=== PATIENT | female | born 1965 | race Caucasian/White ===

== ENCOUNTER 2023-05-21 16:32 | Emergency (ER) | payer OTHER, SELFPAY ==
--- NOTE | ~2023-05-21 | CT_ITS ---
EXAMINATION: CT abdomen pelvis w con DATE: 05/21/2023 17:54 INDICATION: abdomen pain/ulcerative colitis TECHNIQUE: Computed tomography (CT) of the abdomen and pelvis was performed with 100 mL Omnipaque-350 intravenous contrast. Automated exposure control and iterative reconstruction technique were employe d. The dose-length product was 347.39 mGy-cm. COMPARISON: None. FINDINGS: Lower thorax: Unremarkable Liver: Heterogeneous parenchymal enhancement. Spleen not present for comparison. Biliary/Gallbladder: Gallbladder is normal. No bile duct dilation. Pancreas: No mass or duct dilation. Spleen: Absent Adrenals:Normal right adrenal gland. Absent left adrenal gland. Kidneys: Absent left kidney. No suspicious mass, obstructing stone, or hydronephrosis in the right ki dney. Subcentimeter hypodensity, too small to characterize but most likely represents a cyst. GI tract: Mild distal esophageal and moderate gastric wall edema. No small bowel dilation. Diffuse mi ldly dilated large bowel, with large volume of colonic feces. Sigmoid and rectal wall edema. Normal a ppendix. Mesentery/Peritoneum: No ascites, mass, or free air. Retroperitoneum: No mass. Atherosclerotic abdominal aortic and/or arterial calcifications. Pelvis: Asymmetric bladder wall thickening in a partially filled urinary bladder. Uterus not identifi ed. Soft Tissues: Soft tissues and body wall unremarkable. Bones: No acute osseous finding. IMPRESSION: Heterogeneous liver parenchyma as can be seen with cirrhosis. Mild esophagitis and moderate gastritis. Sigmoid and rectal colitis. Large volume of colonic stool may reflect significant constipation in the appropriate clinical contex t. Asymmetric urinary bladder wall thickening, consider referral for cystoscopy. Reviewed, dictated and finalized at [facility] IMPRESSION: Heterogeneous liver parenchyma as can be seen with cirrhosis. Mild esophagitis and moderate gastritis. Sigmoid and rectal colitis. Large volume of colonic stool may reflect significant constipation in the appro priate clinical context. Asymmetric urinary bladder wall thickening, consider referral for cystoscopy.
[2023-05-21 16:45] VITALS: BP 162/88; PULSE 94; RESP 24; TEMP 36.3; O2SAT 97
--- NOTE | 2023-05-21 16:45 | ED.ABDPAIN ---
HPI - Abdominal Pain General Chief Complaint: Abdominal Pain Stated Complaint: abd pain Time Seen by Provider: 05/21/23 16:42 Source: patient Mode of arrival: ambulatory Limitations: no limitations History of Present Illness HPI narrative: Geno is a 57-year-old female patient presenting to the ER today with diffuse lower abdominal pain x3 days. She reports that she does have a history of ulcerative colitis. Has been having mucous stools with little blood. No nausea or vomiting. Rates her pain currently a 10/10-sharp and cramping. Feels as though she needs to have bm constantly. Denies any urine symptoms. GI specialist is at [facility]-Dr. Fry. States she does not take any medications for her ulcerative colitis currently. States the medication she was taking, her insurance will no longer cover. Related Data Allergies Allergy/AdvReac Type Severity Reaction Status Date / Time codeine Allergy Anaphylactic Verified 05/21/23 16:57 Shock Review of Systems Review of Systems: Pertinent positives per HPI. Patient denies any fever, chills, rash, headache, visual changes, dizziness, cough, runny nose, sore throat, shortness of breath, chest pain, palpitations, nausea, vomiting, diarrhea, constipation, or any urinary issues. PMFSH Comments At the time of my signature, I reviewed and agree with the nursing past medical, surgical, social, and family history. There is no relevant family history pertinent to the patient complaint. Exam Narrative: General: Well-developed, well nourished, in distress due to pain Head: Normocephalic, atraumatic. Cardio: Regular rate and rhythm, s1 and s2 normal, no murmur appreciated. Resp: Clear to auscultation bilaterally, no rhonchi, rales, wheezing or rubs. Abdomen: Soft, pliable, bowel sounds present in all quadrants, diffuse lower abdominal tenderness to palpation, no organomegly, no CVAT tenderness. Course Course Emergency Course: Portions of this record may have been created with voice recognition software. Vital Signs Vital signs: Vital Signs Temperature 36.3 C L 05/21/23 16:45 Pulse Rate 94 05/21/23 16:45 Respiratory Rate 24 H 05/21/23 16:45 Blood Pressure 162/88 H 05/21/23 16:45 Pulse Oximetry 97 05/21/23 16:45 Oxygen Delivery Room Air 05/21/23 16:45 Temperature 36.3 C L 05/21/23 16:45 Pulse Rate 94 05/21/23 16:45 Respiratory Rate 24 H 05/21/23 16:45 Blood Pressure 162/88 H 05/21/23 16:45 Pulse Oximetry 97 05/21/23 16:45 Oxygen Delivery Room Air 05/21/23 16:45 Vital signs reviewed MDM - Abdominal Pain MDM Narrative Medical decision making narrative: At the time of visit patient is uncomfortable on the exam stretcher. Rates her pain 10/10. Is stating she is having bilateral lower abdominal pain. History of ulcerative colitis. Does not currently take any maintenance for ulcerative colitis maintenance. GI specialist- Dr. Fry at [facility]. White blood cell count is 21.9 with a H&H of 14.8 and 45.3,platelet counts 377. Electrolytes are within normal limits. BUN is 14 with creatinine 1.30 with a GFR of 42. Glucose is 130, lipase is 20, urinalysis shows a trace protein and a trace of blood without sign of infection. Reports that the initial Dilaudid 0.5 mg iv and Zofran 4mg IV helped her pain a little bit. States her pain still a 9/10. Repeat dilaudid 1 mg IV and Zofran 4MG IV was ordered for pain 9/10. CT shows heterogenous liver parenchyma. Could be seen with cirrhosis, mild esophagitis with moderate gastritis, sigmoid and rectal colitis, large volume of colonic stool may reflect significant constipation and a is symmetric urinary bladder wall thickening. Recommend admission/transfer and patient declines and would like to go home. Patient signed out AMA. Risk and benefits explained and patient voiced understanding. Differential Diagnosis Differential diagnosis: Likely abdominal pain, acute appendicitis, constipation, diverticulitis, panc
[2023-05-21 17:05] LABS: Basophils Absolute Auto 0.1 K/mm3 (0.0-0.1); Basophils Percent Auto 0.3 % (0.2-1.2); Eosinophils Absolute Auto 0.3 K/mm3 (0-0.3); Eosinophils Percent Auto 1.5 % (0-4.4); Hematocrit 45.3 % (37.0-47.0); Hemoglobin 14.8 g/dL (12.0-15.0); Immature Granulocyte Percent A 0.5 % (0-0.5); Lymphocytes Percent Auto 27.8 % (18.3-44.2); Mean Corpuscular HGB Conc 32.7 g/dl (32-36); Mean Corpuscular Hemoglobin 29.6 pg (26-34); Mean Corpuscular Volume 90.6 fl (80-100); Mean Platelet Volume 10.3 fl (7.4-10.4); Monocytes Absolute Auto 1.9 K/mm3 (0.1-0.6); Monocytes Percent Auto 8.6 % (2.6-8.5); Neutrophils Absolute Auto 13.4 K/mm3 (1.3-6.7); Neutrophils Percent Auto 61.3 % (45.5-73.1); Platelet Count Result 377 k/mm3 (150-375); Red Cell Distribution Width 13.9 % (11.5-14.5); White Blood Count 21.9 K/mm3 (4.5-10.0)
[2023-05-21] MEDS: SODIUM CHLORIDE 0.9% IV 1,000 ML 999 ML IV CONT (17:05)
[2023-05-21] MEDS: ONDANSETRON INJ 4 MG/2 ML VIAL IV PUSH ×2 (17:05→18:44)
[2023-05-21] MEDS: HYDROmorphone HCL INJ (*CRX) 1 MG/ML SYR 0.5 MG IV PUSH (17:05)
[2023-05-21 17:08] LABS: Appearance Urine Cloudy (Clear); Bacteria Urine Rare /hpf; Bilirubin Urine Negative (Negative); Blood Urine Trace (Negative); Color Urine Yellow (Yellow); Glucose Urine UA Negative (Negative); Ketones Urine Negative (Negative); Leukocyte Esterase Ur Negative LEU/UL (Negative); Nitrate Urine Negative (Negative); Non Pathogenic Casts 0-2; Protein Urine Trace mg/dL (Negative); Specific Grav Ur 1.011 (1.001-1.035); Squamous Epithelial Cell Urine Few /hpf (Few); Urobilinogen Urine 0.2 mg/dL (<2.0); WBC Urine 0-5 /hpf
[2023-05-21 17:11] LABS: Add Urine Microscopic? YES
[2023-05-21 17:16] LABS: Alanine Aminotransferase 25 U/L (6-35); Albumin Level 4.6 g/dL (3.5-5.1); Alkaline Phosphatase 96 U/L (38-126); Anion Gap 13 mmol/L (8-16); Aspartate Amino Transferase 22 U/L (14-36); Bilirubin,Total 0.5 mg/dL (0.2-1.3); Blood Urea Nitrogen 14 mg/dL (7-17); Calcium 9.9 mg/dL (8.4-10.2); Carbon Dioxide 23 mmol/L (22-30); Chloride 103 mmol/L (98-107); Estimated CRCL calculation 42 ml/min; Estimated Glomerular Filt Rate 42; Glucose 130 mg/dL (65-110); Lipase 20 U/L (23-300); Potassium 3.8 mmol/L (3.4-5.0); Sodium 139 mmol/L (137-145)
[2023-05-21] MEDS: HYDROmorphone HCL INJ (*CRX) 1 MG/ML SYR IV PUSH (18:44)
[2023-05-21 18:49] VITALS: BP 146/83; PULSE 89; RESP 14; O2SAT 100
== END 2023-05-21 19:21 | disposition left against medical advice (07) ==
PROVIDERS: Emergency Provider Nurse Practitioner Family; PCP Family Medicine
DX: K52.9 Noninfective gastroenteritis and colitis, unspecified (principal); K29.00 Acute gastritis without bleeding; D72.829 Elevated white blood cell count, unspecified; K51.90 Ulcerative colitis, unspecified, without complications; K20.90 Esophagitis, unspecified without bleeding
CPT/HCPCS: 36415; 74177; 80053; 81001; 83690; 85025; 96361; 96374; 96375; 96376; 99284; J1170; J2405; J7030; Q9967

== ENCOUNTER 2023-05-29 14:38 | Emergency (ER) | payer OTHER, SELFPAY ==
[2023-05-29 14:50] VITALS: BP 128/90; PULSE 56; RESP 18; TEMP 36.4; O2SAT 99
[2023-05-29 15:08] LABS: Basophils Percent Auto 0.2 % (0.2-1.2); Hematocrit 42.7 % (37.0-47.0); Hemoglobin 13.7 g/dL (12.0-15.0); Immature Granulocyte Percent A 0.7 % (0-0.5); Lymphocytes Absolute Auto 2.88 K/mm3 (0.9-3.2); Lymphocytes Percent Auto 21.6 % (18.3-44.2); Mean Corpuscular HGB Conc 32.1 g/dl (32-36); Mean Corpuscular Hemoglobin 28.9 pg (26-34); Mean Corpuscular Volume 90.1 fl (80-100); Mean Platelet Volume 9.2 fl (7.4-10.4); Monocytes Absolute Auto 0.3 K/mm3 (0.1-0.6); Monocytes Percent Auto 2.4 % (2.6-8.5); Neutrophils Percent Auto 75.1 % (45.5-73.1); Platelet Count Result 550 k/mm3 (150-375); Red Blood Count 4.74 M/mm3 (4.2-5.4); Red Cell Distribution Width 13.9 % (11.5-14.5); White Blood Count 13.4 K/mm3 (4.5-10.0)
[2023-05-29 15:21] LABS: Alanine Aminotransferase 47 U/L (6-35); Albumin Level 4.7 g/dL (3.5-5.1); Alkaline Phosphatase 97 U/L (38-126); Anion Gap 10 mmol/L (8-16); Aspartate Amino Transferase 46 U/L (14-36); Bilirubin,Total 0.4 mg/dL (0.2-1.3); Blood Urea Nitrogen 18 mg/dL (7-17); Calcium 9.9 mg/dL (8.4-10.2); Carbon Dioxide 27 mmol/L (22-30); Chloride 103 mmol/L (98-107); Estimated CRCL calculation 66 ml/min; Estimated Glomerular Filt Rate > 60; Glucose 155 mg/dL (65-110); Lipase 34 U/L (23-300); Potassium 4.2 mmol/L (3.4-5.0); Sodium 140 mmol/L (137-145)
[2023-05-29 15:29] LABS: Appearance Urine Clear (Clear); Bacteria Urine None Seen /hpf; Bilirubin Urine Negative (Negative); Blood Urine Negative (Negative); Color Urine Yellow (Yellow); Glucose Urine UA Negative (Negative); Ketones Urine Negative (Negative); Leukocyte Esterase Ur Negative LEU/UL (Negative); Nitrate Urine Negative (Negative); Non Pathogenic Casts 0-2; Protein Urine Trace mg/dL (Negative); RBC Urine 0-2 /hpf (0-2); Specific Grav Ur 1.007 (1.001-1.035); Squamous Epithelial Cell Urine None seen /hpf (Few); Urobilinogen Urine 0.2 mg/dL (<2.0); WBC Urine 0-5 /hpf
[2023-05-29 16:14] LABS: Add Urine Microscopic? YES
--- NOTE | 2023-05-29 16:54 | PC.NURSE ---
Pt called to go back to pivot room and did not answer
--- NOTE | 2023-05-29 16:55 | PC.NURSE ---
no answer for MSE at [id number]
== END 2023-05-29 17:57 | disposition left against medical advice (07) ==
LOC: ANHED 17:52
PROVIDERS: Emergency Provider Emergency Medicine; PCP Family Medicine
DX: R10.9 Unspecified abdominal pain (principal)
CPT/HCPCS: 36415; 80053; 81001; 83690; 85025; 99199